=== PATIENT | male | born 1945 | race Caucasian/White ===

== ENCOUNTER 2022-01-03 13:22 | Outpatient (CLI) | payer MEDICARE, SELFPAY ==
[2022-01-03 22:16] LABS: Albumin* 4.4 g/dL (3.3-5.0); Chloride* 95 mmol/L (96-114)
[2022-01-03 22:17] LABS: Potassium* 5.2 mmol/L (3.6-5.1); Sodium* 132 mmol/L (135-149)
[2022-01-03 22:19] LABS: Aspartate Amino Transferase* 27 U/L (12-35); Bilirubin Total* 0.7 mg/dL (0.1-1.5); Blood Urea Nitrogen* 18 mg/dL (7-30); Carbon Dioxide* 29 mmol/L (20-32); Cholesterol* 168 mg/dL (90-199); Estimated Glomerular Filt Rate 78 ml/min; Total Protein* 7.1 g/dL (6.0-8.3)
[2022-01-03 22:20] LABS: Alkaline Phosphatase* 80 U/L (40-150); Calcium* 10.1 mg/dL (8.4-10.6); Glucose* 193 mg/dL (60-115); HDL Cholesterol* 42 mg/dL (>=40); LDL Cholesterol Calculated 83 mg/dL (<100); Triglycerides* 216 mg/dL (40-149)
[2022-01-03 22:22] LABS: Creatinine Urine 103.1 mg/dL
[2022-01-03 22:24] LABS: Microalbumin Creatinine Ratio 0 mg/g (0-30); Microalbumin Urine 1 mg/dL
[2022-01-03 22:44] LABS: PSA Screen* 0.68 ng/mL (0.10-4.00)
[2022-01-03 22:52] LABS: Alanine Aminotransferase* 34 U/L (4-50)
== END 2022-01-03 13:23 | disposition home or self-care (01) ==
PROVIDERS: PCP Family Medicine; Visit Provider Family Medicine
DX: Z00.00 Encounter for general adult medical examination without abnormal findings (principal); D64.9 Anemia, unspecified; E11.9 Type 2 diabetes mellitus without complications; E78.5 Hyperlipidemia, unspecified; I10 Essential (primary) hypertension; Z12.5 Encounter for screening for malignant neoplasm of prostate
CPT/HCPCS: 80053; 80061; 82043; 82570; 84153

== ENCOUNTER 2022-04-04 13:04 | Outpatient (CLI) | payer MEDICARE, SELFPAY ==
[2022-04-04 23:01] LABS: Vitamin D 25 Hydroxy* 27 ng/mL (30-80)
== END 2022-04-04 13:05 | disposition home or self-care (01) ==
PROVIDERS: PCP Family Medicine; Visit Provider Family Medicine
DX: E11.9 Type 2 diabetes mellitus without complications (principal); I10 Essential (primary) hypertension; R53.83 Other fatigue; D64.9 Anemia, unspecified
CPT/HCPCS: 82306; 84443

== ENCOUNTER 2022-07-04 13:23 | Outpatient (CLI) | payer MEDICARE, SELFPAY | END 2022-07-04 13:24 | disposition home or self-care (01) | LOC: LKVREF 13:24 | PROVIDERS: PCP Family Medicine; Visit Provider Family Medicine | DX: E55.9 Vitamin D deficiency, unspecified (principal); E11.9 Type 2 diabetes mellitus without complications; I10 Essential (primary) hypertension; E78.5 Hyperlipidemia, unspecified; R53.83 Other fatigue | CPT/HCPCS: 82306 ==

== ENCOUNTER 2022-07-15 12:32 | Outpatient (CLI) | payer MEDICARE, SELFPAY | END 2022-07-15 12:33 | disposition home or self-care (01) | LOC: RAD 12:34 | PROVIDERS: PCP Family Medicine; Visit Provider Family Medicine | DX: R60.9 Edema, unspecified (principal); I31.39 Other pericardial effusion (noninflammatory); R53.83 Other fatigue | CPT/HCPCS: 93306 ==

== ENCOUNTER 2022-11-23 08:01 | Day surgery (SDC) | payer MEDICARE, SELFPAY ==
[2022-11-23] MEDS: KETOROLAC OPHTH 0.5% 1 DROP EYE-RIGHT ×3 (08:00→08:10)
[2022-11-23] MEDS: TETRACAINE 0.5% OPHTH 1 DROP EYE-RIGHT ×2 (08:00→08:05)
[2022-11-23 08:14] VITALS: BP 151/92; PULSE 63; RESP 16; TEMP 36.5; O2SAT 94; BMI 33.3
[2022-11-23] MEDS: SODIUM CHLORIDE 0.9 % (FLUSH) 10 ML SYRINGE IVF (08:44)
--- NOTE | 2022-11-23 08:45 | SUR.PREOP ---
The eye drops brought by the patient (Ketorolac, Oflaxacin and Prednisolone) are examined and I have determined they are labeled by the patient's pharmacy for this patient as prescribed by the surgeon. The bottles are intact, recently obtained and appear to be correct.
--- NOTE | 2022-11-23 09:24 | P.ANES_ITS ---
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
[2022-11-23] MEDS: TETRACAINE 0.5% OPHTH 2 DROP EYE-RIGHT (09:26)
[2022-11-23] MEDS: BALANCED SALT IRRIG SOLN 15 ML EYE-RIGHT (09:27)
[2022-11-23] MEDS: TRYPAN BLUE 0.5 ML SYRINGE EYE-RIGHT (09:28)
--- NOTE | 2022-11-23 09:29 | W.ANESCHARGE ---
Anesthesia Charges Start Date/Time Anesthesia Start Date: 11/23/22 Anesthesia Start Time: 09:18 Stop Date/Time Anesthesia Stop Date: 11/23/22 Anesthesia Stop Time: 10:09 Summary Extremes of Age - Over 70 or under 1: MDA
[2022-11-23 10:13] VITALS: BP 126/83; PULSE 61; RESP 16; TEMP 36.3; O2SAT 94
[2022-11-23] MEDS: ACETAMINOPHEN 500 MG TABLET 1000 MG PO (10:30)
--- NOTE | 2022-11-23 10:50 | SUR.PHASEII ---
As pt was sitting up in chair, he did vomit one time. 50cc. ambulated to bathroom without difficulty. Pt states before discharge, he was feeling better, not nauseated and pain in eye getting better. Tylenol was given before discharge.
--- NOTE | 2022-11-23 10:53 | W.PM.OPTPROC ---
Procedure Note Date of procedure: 11/23/22 Will [facility] bill your pro fee for this procedure?: Yes Procedure Description: SURGEON: Montse Arthur MD PREOPERATIVE DIAGNOSIS: 1. Mature cataract, right eye. 2. Miosis, right eye. POSTOPERATIVE DIAGNOSIS: 1. Mature cataract, right eye. 2. Miosis, right eye. NAME OF OPERATION: Phacoemulsification of cataract with posterior chamber intraocular lens implantation in the right eye with pupilloplasty and trypan blue. ANESTHESIA: Topical. ESTIMATED BLOOD LOSS: Less than 2 cc. COMPLICATIONS: None. PATHOLOGY SPECIMEN: None. INDICATIONS: See consult note for details. The risks, benefits and alternatives of the procedure were explained to the patient, who elected to proceed and signed informed consent to do so. PROCEDURE: The patient was brought to the pre-holding area where the right eye was identified as the operative eye. I placed my initials above this eye. The patient received eye drops consisting of 0.5% tetracaine, 1% tropicamide, 10% phenylephrine, and 0.5% ketorolac. The patient was then brought to the operating room where the right eye was again identified as the operative eye. The eye was prepped with Betadine and draped in the usual sterile ophthalmic fashion. A #15 super-sharp blade was used to create a paracentesis site. 1% non-preserved intracameral lidocaine was injected into the anterior chamber. An air bubble was injected into the anterior chamber. Trypan blue was injected posterior to the air bubble in order to stain the anterior capsule. Balanced salt solution was used to irrigate the anterior chamber. Endocoat was injected into the anterior chamber. A 2.4 mm keratome was used to create a three-plane self-sealing incision 1 mm anterior to the temporal limbus. A #15 super-sharp blade was used to create four additional paracentesis sites. Four Grieshaber iris hooks were placed in order to stretch the iris. A cystotome was used to create an anterior capsular leaflet. The Utrata forceps were used to extend this to form a continuous curvilinear capsulorrhexis. Hydrodissection was performed. The cataract was removed with phacoemulsification using the [id number] technique. The irrigation and aspiration tip was used to remove the remaining cortex. Healon was injected into the capsular bag. An SAMARA ZCB00 intraocular lens of 22.5 diopters was injected into the capsular bag. The four Grieshaber iris hooks were removed. The irrigation and aspiration tip was used to remove the remaining viscoelastic. Miostat was injected into the anterior chamber. Balanced salt solution on a cannula was used to hydrate the wound, and the wound was found to be watertight. The pupil was noted to be round. DISPOSITION: The patient was taken to the recovery room and discharged to home in stable condition. The patient was instructed to call me or go to the emergency department with any sudden change, including dramatic loss of vision, severe pain in the eye or eyebrow region, nausea, or vomiting. The patient will follow up in the clinic tomorrow morning.
== END 2022-11-23 10:52 | disposition home or self-care (01) ==
PROVIDERS: PCP Family Medicine; Visit Provider Ophthalmology
PROC: (CPT 66982; principal; 2022-11-23 08:15)
DX: H25.89 Other age-related cataract (principal); H57.03 Miosis
CPT/HCPCS: 66982; 00142; 82962; 99100; A9270; J2250; J3010; V2632

== ENCOUNTER 2023-01-05 13:32 | Outpatient (CLI) | payer MEDICARE, SELFPAY | END 2023-01-05 13:33 | disposition home or self-care (01) | LOC: LKVREF 13:33 | PROVIDERS: PCP Family Medicine; Visit Provider Family Medicine | DX: E11.9 Type 2 diabetes mellitus without complications (principal); E55.9 Vitamin D deficiency, unspecified | CPT/HCPCS: 80053; 80061; 82043; 82570 ==

== ENCOUNTER 2023-06-07 08:02 | Day surgery (SDC) | payer MEDICARE, SELFPAY ==
[2023-06-07 08:21] VITALS: BP 157/73; PULSE 87; RESP 16; TEMP 36.6; O2SAT 97; BMI 31.2
[2023-06-07] MEDS: TETRACAINE 0.5% OPHTH 1 DROP EYE-LEFT ×2 (08:30→08:35)
[2023-06-07] MEDS: KETOROLAC OPHTH 0.5% 1 DROP EYE-LEFT ×3 (08:30→08:40)
[2023-06-07] MEDS: SODIUM CHLORIDE 0.9 % (FLUSH) 10 ML SYRINGE IVF (08:41)
--- NOTE | 2023-06-07 09:13 | W.ANESCHARGE ---
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
[2023-06-07] MEDS: TETRACAINE 0.5% OPHTH 2 DROP EYE-LEFT (09:22)
[2023-06-07] MEDS: TRYPAN BLUE 0.5 ML SYRINGE EYE-LEFT (09:28)
[2023-06-07] MEDS: BALANCED SALT IRRIG SOLN 15 ML EYE-LEFT (09:28)
--- NOTE | 2023-06-07 09:57 | W.ANESCHARGE ---
Anesthesia Charges Start Date/Time Anesthesia Start Date: 06/07/23 Anesthesia Start Time: 09:20 Stop Date/Time Anesthesia Stop Date: 06/07/23 Anesthesia Stop Time: 10:05 Summary Extremes of Age - Over 70 or under 1: MDA
[2023-06-07 10:01] VITALS: BP 118/82; PULSE 75; RESP 16; TEMP 36.4; O2SAT 96
--- NOTE | 2023-06-07 10:20 | W.PM.OPTPROC ---
Procedure Note Date of procedure: 06/07/23 Will [facility] bill your pro fee for this procedure?: Yes Procedure Description: SURGEON: Montse Arthur MD PREOPERATIVE DIAGNOSIS: 1. Mature cataract, left eye. 2. Miosis, left eye. POSTOPERATIVE DIAGNOSIS: 1. Mature cataract, left eye. 2. Miosis, left eye. NAME OF OPERATION: Phacoemulsification of cataract with posterior chamber intraocular lens implantation in the left eye with pupilloplasty and trypan blue. ANESTHESIA: Topical. ESTIMATED BLOOD LOSS: Less than 2 cc. COMPLICATIONS: None. PATHOLOGY SPECIMEN: None. INDICATIONS: See consult note for details. The risks, benefits and alternatives of the procedure were explained to the patient, who elected to proceed and signed informed consent to do so. PROCEDURE: The patient was brought to the pre-holding area where the left eye was identified as the operative eye. I placed my initials above this eye. The patient received eye drops consisting of 0.5% tetracaine, 1% tropicamide, 10% phenylephrine, and 0.5% ketorolac. The patient was then brought to the operating room where the left eye was again identified as the operative eye. The eye was prepped with Betadine and draped in the usual sterile ophthalmic fashion. A #15 super-sharp blade was used to create a paracentesis site. 1% non-preserved intracameral lidocaine was injected into the anterior chamber. An air bubble was injected into the anterior chamber. Trypan blue was injected posterior to the air bubble in order to stain the anterior capsule. Endocoat was injected into the anterior chamber. A 2.4 mm keratome was used to create a three-plane self-sealing incision 1 mm anterior to the temporal limbus. A #15 super-sharp blade was used to create four additional paracentesis sites. Four Grieshaber iris hooks were placed in order to stretch the iris. A cystotome was used to create an anterior capsular leaflet. The Utrata forceps were used to extend this to form a continuous curvilinear capsulorrhexis. Hydrodissection was performed. The cataract was removed with phacoemulsification using the [id number] technique. The irrigation and aspiration tip was used to remove the remaining cortex. Healon was injected into the capsular bag. An SAMARA ZCB00 intraocular lens of 23.0 diopters was injected into the capsular bag. The four Grieshaber iris hooks were removed. The irrigation and aspiration tip was used to remove the remaining viscoelastic. Miostat was injected into the anterior chamber. Balanced salt solution on a cannula was used to hydrate the wound, and the wound was found to be watertight. The pupil was noted to be round. DISPOSITION: The patient was taken to the recovery room and discharged to home in stable condition. The patient was instructed to call me or go to the emergency department with any sudden change, including dramatic loss of vision, severe pain in the eye or eyebrow region, nausea, or vomiting. The patient will follow up in the clinic tomorrow morning.
--- NOTE | 2023-06-07 10:21 | P.OPTPRC_ITS ---
Procedure Note Date of procedure: 06/07/23 Will [facility] bill your pro fee for this procedure?: Yes Procedure: discard this note, it is a duplicate
--- NOTE | 2023-06-07 10:21 | W.PM.OPTPROC ---
Procedure Note Date of procedure: 06/07/23 Will [facility] bill your pro fee for this procedure?: Yes Procedure: discard this note, it is a duplicate
--- NOTE | 2023-06-07 10:44 | SUR.PHASEII ---
The eye drops brought by the patient (Ketorolac, Prednisolone, and Ofloxacin) are examined and I have determined they are labeled by the patient's pharmacy for this patient as prescribed by the surgeon. The bottles are intact, recently obtained and appear to be correct.
== END 2023-06-07 10:34 | disposition home or self-care (01) ==
PROVIDERS: PCP Family Medicine; Visit Provider Ophthalmology
PROC: (CPT 66982; principal; 2023-06-07 08:15)
DX: H25.89 Other age-related cataract (principal); H57.03 Miosis; E11.9 Type 2 diabetes mellitus without complications
CPT/HCPCS: 66982; 00142; 82962; 99100; A9270; J2250; J2405; J3010; V2632

== ENCOUNTER 2023-10-03 13:10 | Outpatient (CLI) | payer MEDICARE, SELFPAY ==
--- OUTSIDE RECORDS SUMMARY | 2023-10-03 13:16 | XMS_ITS | Clinical Summary ---
Author Organization [place] Address [address] [place] [address]. [place] [address] Care Team Providers Care Net Repairer Name Role Phone [facility]- Primary Care Provider Jennyfer Patel PA-C Unavailable [phone] Allergies No known active allergies Medications Medication Sig Dispensed Refills Start Date End Date Status amLODIPine (NORVASC) 2.5 MG tablet Take 2.5 mg by mouth daily Active famotidine (PEPCID) 40 MG tablet Take 40 mg by mouth daily Active glimepiride (AMARYL) 2 MG tablet Take 2 mg by mouth every morning (before breakfast) Active atorvastatin (LIPITOR) 20 MG tablet Take 20 mg by mouth At Bedtime Active losartan-hydrochlor othiazide (HYZAAR) 100-25 MG tablet Take 1 tablet by mouth daily Active metFORMIN (GLUCOPHAGE) 500 MG tablet Take 1,000 mg by mouth 2 times daily (with meals) Active cholecalciferol (VITAMIN D3) 125 mcg (5000 units) capsule Take 125 mcg by mouth daily Active triamcinolone (KENALOG) 0.1 % external cream Apply topically 2 times daily as needed for irritation (psoriasis) Active polyethylene glycol (MIRALAX) 17 GM/Dose powderIndications:T ibia/fibula fracture, right, closed, initial encounter Take 17 g by mouth daily 510 g 12/02/2022 Active senna-docusate (SENOKOT-S/PERICOLA CE) 8.6-50 MG tabletIndications:T ibia/fibula fracture, right, closed, initial encounter Take 1 tablet by mouth 2 times daily 21 tablet 12/02/2022 Active calcium carbonate (TUMS) 500 MG chewable tabletIndications:T ibia/fibula fracture, right, closed, with routine healing, subsequent encounter Take 1 tablet (500 mg) by mouth 2 times daily as needed for heartburn 12/05/2022 Active acetaminophen (TYLENOL) 500 MG tablet Take 1,000 mg by mouth 3 times daily as needed for mild pain Active Active Problems Problem Noted Date Diagnosed Date Tibia/fibula fracture, right , closed, with routine healing, subsequent encounter 11/30/2022 Encounters Date Type Department Care Team Description 07/14/2023 Telephone [facility] [address] [facility] [address] [place] [phone] Sugey Sullivan, HANNA Implantable Devices (PPM remote monitor question ) 07/07/2023 Ancillary Procedure [facility] [address] [facility] [address] [place] [phone] Carlos Diane MD Cardiac pacemaker in situ; Atrioventricular block, complete (H) from Last 3 Months Immunizations Name Administration Dates Next Due Influenza Vaccine 65+ (Fluzone HD) 01/03/2022,,04/10/2020 TDAP (Adacel,Boostrix) 12/02/2022 Social History Tobacco Use Types Packs/Day Years Used Date Smoking Tobacco: Former Cigarettes Q uit: 2018 Smokeless Tobacco: Never Tobacco Cessation:Counseling Given: Not Answered Alcohol Use Standard Drinks/Week Comments Never 0 (1 standard drink = 0.6 oz pur e alcohol) Adolescent Education Answer Date Record ed Getting School Help Needed Not on file 12/10 Sex and Gender Information Value Date Recorded Sex Assigned at Not on file Gender Identity Not on file Sexual Orientation Not on file Last Filed Vital Signs Vital Sign Reading Time Taken Comments Blood Pressure 121/77 01/19/2023 5:00 PM CDT Pulse 81 01/19/2023 5:15 PM CDT Temperature 36.3 ??C (97.4 ??F) 01/19/2023 1:28 PM CD T Respiratory Rate 18 01/19/2023 5:15 PM CDT Oxygen Saturation 96% 01/19/2023 5:15 PM CDT Inhaled Oxygen Concentration - - Weight 109.9 kg (242 lb 3.2 oz) 01/19/2023 1:28 PM CDT Height 185.4 cm (6' 1) 01/19/2023 1:28 PM CDT Body Mass Index 31.95 01/19/2023 1:28 PM CDT Plan of Treatment Upcoming Encounters Date Type Department Care Team (Late st Contact Info) Description 10/30/2023 Ancillary Procedure [facility] [address] [facility] [address] [place] [phone] Carlos Diane MD [address] [place] [address] Health Maintenance Due Date Last Done Comments ADVANCE CARE PLANNING 1945 ANNUAL REVIEW OF HM ORDERS 1946 DIABETIC FOOT EXAM 1946 EYE EXAM 1946 LIPID 1946 MICROALBUMIN 1946 MENINGITIS IMMUNIZATION (1 - Risk 2-dose series) 02/17/1948 HEPATITIS C SCREENING 02/17/1964 LUNG CANCER SCREENING 02/17/1996 ZOSTER IMMUNIZATION (1 of 2) 02/17/1996 RSV VACCINE ( & 60+) (1 - 1-dose 60+ series) 2006 FALL RISK ASSESSMENT 2011 MEDICARE ANNUAL WELLNESS VISIT 2011 A1C 03/01/2023 11/30/2022 PHQ-2 (once per calendar year) 2023 COVID-19 Vaccine ( season) 2023 03/24/2023, 12/14/2021, 04/27/2021, Additional history exists INFLUENZA VACCINE (#1) 2023 , 01/03/2022, 01/04/2021, Additional history exists BMP 01/20/2024 01/19/2023, 11/19, 12/05/2022, Additional history exists DTAP/TDAP/TD IMMUNIZATION (2 - Td or Tdap) 12/02/2032 12/02/2022 Pneumococcal Vaccine: 65+ Years Completed 10/07/2016, 02/20/2015 HPV IMMUNIZATION Aged Out No longer e ligible based on patient's age to complete this topic IPV IMMUNIZATION Aged Out No longer e ligible based on patient's age to complete this topic RSV MONOCLONAL ANTIBODY Aged Out No l onger eligible based on patient's age to complete this topic Medical Devices Implanted Type Area Floor Nurse Device Identifier Shelf Expiration Date Model / Serial / Lot Lead Ingevity+ Af Is1 7842 59cm - [id number] Implanted:Qty : 1 on 01/19/[address] [facility] Leads [employer] 10/22/2024 7842 / [id number] / [id number] Lead Ingevity+ Af Is1 7841 52cm - [id number] Implanted:Qty : 1 on 01/19/[address] [facility] [employer] 10/18/2024 7841 / [id number] / [id number] Screw Bn 47.5mm 5mm Lck Strl T2 Alpha - [id number] Implanted:Qty : 1 on 12/01/2022 by Amadeo Jean-Bapitste MD at [facility] Metallic Hardware/Anch or Right: Leg BLOSSOM [employer] 09/17/2023 [id number] S / / [id number] Screw Bn 40mm 5mm Lck Strl T2 Alpha - [id number] Implanted:Qty : 1 on 12/01/2022 by Amadeo Jean-Baptiste MD at [facility] Metallic Hardware/Anch or Right: Leg [employer] 04/19/2032 [id number] S / / [id number] Screw Bn 47.5mm 5mm Lck Strl T2 Alpha - [id number] Implanted:Qty : 1 on 12/01/2022 by Amadeo Jean-Baptiste MD at [facility] Metallic Hardware/Anch or Right: Leg BLOSSOM [employer] 11/17/2029 [id number] S / / [id number] Card Accolade Mri - [id number] Implanted:Qty : 1 on 01/19/[address] [facility] Pacemaker [employer] 12/11/2024 L331 / [id number] / [id number] Tibial Nail 11 X 375 Implanted:Qty : 1 on 12/01/2022 by Amadeo Jean-Baptiste MD at [facility] Right: Leg [employer] 05/18/2031 [id number] S / / [id number] Wire Fx 3mm 285mm [facility] - [id number] Implanted:Qty : 1 on 12/01/2022 by Amadeo Jean-Baptiste MD at [facility] Right: Leg [employer] [id number] S / / [id number] Procedures Procedure Name Priority Date/Time Associated Diagnosis Comments INTERROGATION DEVICE EVAL REMOTE PACER UP TO 90 DAYS Routine 07/07/2023 9:10 AM CDT Cardiac pacemaker in situ Atrioventricular block, complete (H) BASIC METABOLIC PANEL STAT 01/19/2023 2:11 PM CDT HEMOGLOBIN A1C Add-On 11/30/2022 2:22 PM CDT from Last 3 Months or Most Recently Relevant to Health Maintenance Results * INTERROGATION DEVICE EVAL REMOTE PACER UP TO 90 DAYS (07/07/2023 9:10 AM CDT) Date Time Interrogation Session [id number] [employer] Implantable Pulse Generator Floor Nurse [place] [employer] Implantable Pulse Generator Model L331 ACCOLADE MRI EL [employer] Implantable Pulse Generator Serial Number [id number] [employer] Type Interrogation Session Remote Scheduled [facility] Clinic Name [facility] [employer] Implantable Pulse Generator Type Pacemaker [employer] Implantable Pulse Generator Implant Date 20230119 [employer] Implantable Lead Floor Nurse [place] [employer] Implantable Lead Model 7841 Ingevity + MRI [employer] Implantable Lead Serial Number [id number] [employer] Implantable Lead Implant Date 20230119 [employer] Implantable Lead Polarity Type Bipolar Lead [employer] Implantable Lead Location Detail 1 UNKNOWN [employer] Implantable Lead Location Right Atrium [employer] Implantable Lead Connection Status Connected [employer] Implantable Lead Floor Nurse [place] [employer] Implantable Lead Model 7842 Ingevity + MRI [employer] Implantable Lead Serial Number [id number] [employer] Implantable Lead Implant Date 20230119 [employer] Implantable Lead Polarity Type Bipolar Lead [employer] Implantable Lead Location Detail 1 UNKNOWN [employer] Implantable Lead Location Right Ventricle [employer] Implantable Lead Connection Status Connected [employer] Jd Setting Mode (NBG Code) DDD [employer] Jd Setting Lower Rate Limit 60 {beats}/ min [employer] Jd Setting Maximum Tracking Rate 130 {beats}/ min [employer] Jd Setting Maximum Sensor Rate 130 {beats}/ min [employer] Jd Setting MER Delay Low 200 ms [employer] Jd Setting PAV Delay Low 200 ms [employer] Jd Setting PAV Delay High 150 ms [employer] Jd Setting MER Delay High 150 ms [employer] Jd Setting AT Mode Switch Rate 170 {beats}/ min [employer] Jd Setting AT Mode Switch Mode VDIR [employer] Lead Channel Setting Sensing Polarity Bipolar [employer] Lead Channel Setting Sensing Sensitivity 0.15 mV [employer] Lead Channel Setting Sensing Adaptation Mode Adaptive [employer] Lead Channel Setting Sensing Polarity Bipolar [employer] Lead Channel Setting Sensing Sensitivity 1.5 mV [employer] Lead Channel Setting Sensing Adaptation Mode Adaptive [employer] Lead Channel Setting Pacing Polarity Bipolar [employer] Lead Channel Setting Pacing Pulse Width 0.4 ms [employer] Lead Channel Setting Pacing Amplitude 2.0 V [employer] Lead Channel Setting Pacing Capture Mode Adaptive [employer] Lead Channel Setting Pacing Polarity Bipolar [employer] Lead Channel Setting Pacing Pulse Width 0.4 ms [employer] Lead Channel Setting Pacing Amplitude 1.2 V [employer] Lead Channel Setting Pacing Capture Mode Adaptive [employer] Zone Setting Type Category VT [employer] Zone Setting Vendor Type Category VT [employer] Zone Setting Status Monitor [employer] Zone Setting Detection Interval 375 ms [employer] Lead Channel Impedance Value 562 ohm [employer] Lead Channel Pacing Threshold Amplitude 0.7 V [employer] Lead Channel Pacing Threshold Pulse Width 0.4 ms [employer] Lead Channel Impedance Value 738 ohm [employer] Lead Channel Pacing Threshold Amplitude 0.9 V [employer] Lead Channel Pacing Threshold Pulse Width 0.4 ms [employer] Battery Date Time of Measurements [employer] Battery Status Beginning of Service [employer] Battery Remaining Longevity 174 mo [employer] Battery Remaining Percentage 100 % [employer] Jd Statistic Date Time Start [employer] Jd Statistic Date Time End [id number] [employer] Jd Statistic RA Percent Paced 13 % [employer] Jd Statistic RV Percent Paced 82 % [employer] Atrial Tachy Statistic Date Time Start [id number] [employer] Atrial Tachy Statistic Date Time End [id number] [employer] Atrial Tachy Statistic AT/AF [place] Percent 0 % [employer] Episode Statistic Recent Count 0 [employer] Episode Statistic Type Category Other [employer]IC Episode Statistic Recent Count 0 [employer]IC Episode Statistic Type Category VT [employer]TR[employer]IC Episode Statistic Vendor Type Category NSVT [employer]TR[employer] Episode Statistic Recent Count 0 [employer]IC Episode Statistic Type Category VT [employer]TR[employer]IC Episode Statistic Vendor Type Category VT [employer]TR[employer]IC Episode Statistic Recent Date Time Start [id number] [employer] Episode Statistic Recent Date Time End [id number] [employer] Episode Statistic Recent Date Time Start [employer]TR[employer]IC Episode Statistic Recent Date Time End [id number] [employer] Episode Statistic Recent Date Time Start [employer] Episode Statistic Recent Date Time End [employer] Episode Identifier APM-5 [employer] Episode Type Category Periodic EGM [employer] Episode Date Time [id number] [employer] Episode Identifier [id number] [employer] Episode Type Category Other [employer] Episode Date Time [id number] [employer] Episode Identifier [id number] [employer] Episode Type Category Other [employer]IC Episode Date Time [id number] [employer] Episode Identifier PMT-2 [employer] Episode Type Category Other [employer]IC Episode Date Time [id number] [employer] Episode Identifier PMT-1 [employer] Episode Type Category Other [employer] Episode Date Time [id number] [employer] Anatomical Region Laterality Modality Other 07/07/2023 4:01 AM CDT Narrative 07/11/2023 11:04 AM CDT [facility] Accolade (D) Remote PPM Device Check AP: 13% TUBE TELLER: 82% Mode: DDD 60/130 Presenting Rhythm: /TUBE TELLER Historical underlying rhythm: SR 70's bpm with freq PACs and occ PVCs Heart Rate: Adequate rates per histogram Sensing: stable Pacing Threshold: stable Impedance: stable Battery Status: 14.5 years Atrial Arrhythmia: none Ventricular Arrhythmia: none Care Plan: F/u PPM Latitude q 3 months. LM with results. SOPHIA MontejoT I have reviewed and interpreted the device interrogation, settings, programming and nurse's summary. The device is functioning within normal device parameters. I agree with the current findings, assessment and plan. Carlos Santana MD [facility] CARDIAC SERVICES ORDERABLES * (ABNORMAL) Basic metabolic panel (01/19/2023 2:11 PM CDT) Sodium 138 135 - 145 mmol/L 01/19/2023 2:39 PM CDT LABORATORY Comment:Reference intervals for this test were updated on 12/13/2022 to more accurately reflect our healthy population. There may be differences in the flagging of prior results with similar values performed with this method. Interpretation of those prior results can be made in the context of the updated reference intervals. Potassium 5.2 3.4 - 5.3 mmol/L 01/19/2023 2:39 PM CDT LABORATORY Chloride 101 98 - 107 mmol/L 01/19/2023 2:39 PM CDT LABORATORY Carbon Dioxide (CO2) 26 22 - 29 mmol/L 01/19/2023 2:39 PM CDT LABORATORY Anion Gap 11 7 - 15 mmol/L 01/19/2023 2:39 PM CDT LABORATORY Urea Nitrogen 25.6(H) 8.0 - 23.0 mg/dL 01/19/2023 2:39 PM CDT LABORATORY Creatinine 1.67(H) 0.67 - 1.17 mg/dL 01/19/2023 2:39 PM CDT LABORATORY GFR Estimate 42(L) >60 mL/min/1. 73m2 01/19/2023 2:39 PM CDT LABORATORY Calcium 9.8 8.8 - 10.2 mg/dL 01/19/2023 2:39 PM CDT LABORATORY Glucose 147(H) 70 - 99 mg/dL 01/19/2023 2:39 PM CDT LABORATORY Blood STRUCTURE OF LEFT HAND / Unknown Venipuncture / Unknown 01/19/2023 2:11 PM CDT 01/19/2023 2:16 PM CDT Carlos Santana MD LAB - BLOOD ORDERABL ES LABORATORY [facility] [address] 1[address] floor, [address] [place] [address], [facility] [phone] * (ABNORMAL) Hemoglobin A1c (11/30/2022 2:22 PM CDT) Hemoglobin A1C 9.4(H) <5.7 % 11/30/2022 7:11 PM CDT LABORATORY Comment: Normal <5.7% Prediabetes 5.7-6.4% ?? Diabetes 6.5% or higher Note: Adopted from ADA consensus guidelines. Blood STRUCTURE OF RIGHT HAND / Unknown Venipuncture / Unknown 11/30/2022 2:22 PM CDT 11/30/2022 2:26 PM CDT Dimitri Seth IRB COMPLIANCE COORDINATOR MACHINE DESIGN TEACHER LAB - BLOOD O RDERABLES [facility] Lab [address] Lab (1st floor, no room number) [place] [address], [place] [phone] from Last 3 Months or Most Recently Relevant to Health Maintenance Advance Directives For more information, please contact: [phone] * Full Code (Latest Code Status on File) Date Activated Date Inactivated Comments 12/01/2022 11:58 AM 12/05/2022 4:50 PM All basic a nd advanced life-sustaining interventions are performed as appropriate Question Answer Comments Code status determined by: Unable to dis cuss and no AD/POLST on file; continue PREVIOUSLY ORDERED code status * Full Code Date Activated Date Inactivated Comments 11/30/2022 6:27 PM 12/01/2022 11:58 AM All basic a nd advanced life-sustaining interventions are performed as appropriate Question Answer Comments Code status determined by: Discussion with tho nt/ legal decision maker Care Teams Net Repairer Relationship Specialty Start Date End Date [facility]- [address] [place] [address] PCP - General 12/02/22 Jennyfer Patel PA-C [address] [place] [address] Assigned Heart and Vascular Provider 12/24/22
--- OUTSIDE RECORDS SUMMARY | 2023-10-03 13:16 | XMS_ITS | Encounter Summary ---
Author Organization [place] Address [address] [facility] [place] [address] Care Team Providers Care Solution Spec Name Role Phone [facility]- Primary Care Provider Jennyfer Patel PA-C Unavailable [phone] Reason for Visit * CV Testing (Routine) - Pending Review Specialty Diagnoses / Procedures Referred By Contac t Referred To Contact Diagnoses Cardiac pacemaker in situ Atrioventricular block, complete (H) Procedures Cardiac Device Check - Remote Carlos Diane MD [address] [place] [address] Referral ID Status Reason Start Date Expiration Date V isits Requested Visits Authorized [id number] Pending Review 01/20/2023 01/20/2024 100 100 Encounter Details Date Type Department Care Team (Latest Contact Info) Description 07/07/2023 Ancillary Procedure [facility] [address] [facility] [address] [place] [phone] Carlos Diane MD [address] [facility] [address] [place], [place] [address] Cardiac pacemaker in situ; Atrioventricular block, complete (H) Social History Tobacco Use Types Packs/Day Years Used Date Smoking Tobacco: Former Cigarettes Q uit: 2018 Smokeless Tobacco: Never Alcohol Use Standard Drinks/Week Comments Never 0 (1 standard drink = 0.6 oz pur e alcohol) Adolescent Education Answer Date Record ed Getting School Help Needed Not on file 12/10 Sex and Gender Information Value Date Recorded Sex Assigned at Not on file Gender Identity Not on file Sexual Orientation Not on file documented as of this encounter Plan of Treatment Upcoming Encounters Date Type Department Care Team (Late st Contact Info) Description 10/30/2023 Ancillary Procedure [facility] [address] [facility] [address] [place] [phone] Carlos Diane MD [address] [facility] [address] [place] [phone] documented as of this encounter Procedures Procedure Name Priority Date/Time Associated Diagnosis Comments INTERROGATION DEVICE EVAL REMOTE PACER UP TO 90 DAYS Routine 07/07/2023 9:10 AM CDT Cardiac pacemaker in situ Atrioventricular block, complete (H) documented in this encounter Results * INTERROGATION DEVICE EVAL REMOTE PACER UP TO 90 DAYS (07/07/2023 9:10 AM CDT) Date Time Interrogation Session [id number] [employer] Implantable Pulse Generator Atomic Fuel Assembler [place] [employer] Implantable Pulse Generator Model L331 ACCOLADE MRI EL [employer] Implantable Pulse Generator Serial Number [id number] [employer] Type Interrogation Session Remote Scheduled [facility] Clinic Name [facility] [employer] Implantable Pulse Generator Type Pacemaker [employer] Implantable Pulse Generator Implant Date 20230119 [employer] Implantable Lead Atomic Fuel Assembler [place] [employer] Implantable Lead Model 7841 Ingevity + MRI [employer] Implantable Lead Serial Number [id number] [employer] Implantable Lead Implant Date 20230119 [employer] Implantable Lead Polarity Type Bipolar Lead [employer] Implantable Lead Location Detail 1 UNKNOWN [employer] Implantable Lead Location Right Atrium [employer] Implantable Lead Connection Status Connected [employer] Implantable Lead Atomic Fuel Assembler [place] [employer] Implantable Lead Model 7842 Ingevity + MRI [employer] Implantable Lead Serial Number [id number] [employer] Implantable Lead Implant Date 20230119 [employer]IC [...] % [employer] Jd Statistic Date Time Start [id number] [employer] Jd Statistic Date Time End [id number] [employer] Jd Statistic RA Percent Paced 13 % [employer] Jd Statistic RV Percent Paced 82 % [employer] Atrial Tachy Statistic Date Time Start 16882080299212 [employer] Atrial Tachy Statistic Date Time End [id number] [employer] Atrial Tachy Statistic AT/AF [place] Percent 0 % [employer] Episode Statistic Recent Count 0 [employer] Episode Statistic Type Category Other [employer] Episode Statistic Recent Count 0 [employer] Episode Statistic Type Category VT [employer] Episode Statistic Vendor Type Category NSVT [employer]TR[employer] Episode Statistic Recent Count 0 [employer] Episode Statistic Type Category VT [employer] Episode Statistic Vendor Type Category VT [employer] Episode Statistic Recent Date Time Start [id number] [employer] Episode Statistic Recent Date Time End [id number] [employer] Episode Statistic Recent Date Time Start [id number] [employer] Episode Statistic Recent Date Time End [id number] [employer]TR[employer] Episode Statistic Recent Date Time Start [id number] [employer] Episode Statistic Recent Date Time End [id number] [employer] Episode Identifier APM-5 [employer] Episode Type Category Periodic EGM [employer] Episode Date Time [id number] [employer] Episode Identifier [id number] [employer] Episode Type Category Other [employer] Episode Date Time [id number] [employer] Episode Identifier [id number] [employer] Episode Type Category Other [employer] Episode Date Time [id number] [employer] Episode Identifier PMT-2 [employer] Episode Type Category Other [employer] Episode Date Time [id number] [employer] Episode Identifier PMT-1 [employer] Episode Type Category Other [employer] Episode Date Time [id number] [employer] Anatomical Region Laterality Modality Other 07/07/2023 4:01 AM CDT Narrative 07/11/2023 11:04 AM CDT [employer] Accolade (D) Remote PPM Device Check AP: 13% BLOWER OPERATOR: 82% Mode: DDD 60/130 Presenting Rhythm: /BLOWER OPERATOR Historical underlying rhythm: SR 70's bpm with [...] Carlos Santana MD [facility] C[facility] SERVICES ORDERABLES documented in this encounter Visit Diagnoses Diagnosis Cardiac pacemaker in situ Atrioventricular block, complete (H) Atrioventricular block, complete documented in this encounter Care Teams Solution Spec Relationship Specialty Start Date End Date [facility]- [address] [place] [address] PCP - General 12/02/22 Jennyfer Patel PA-C [address] [place] [address] Assigned Heart and Vascular Provider 12/24/22 documented as of this encounter
--- OUTSIDE RECORDS SUMMARY | 2023-10-03 13:16 | XMS_ITS | Encounter Summary ---
Author Organization [place] Address [address] [address] Care Team Providers Care Sde Name Role Phone [facility]- Primary Care Provider Jennyfer Patel PA-C Unavailable [phone] Reason for Referral * Consultation - Pending Review Specialty Diagnoses / Procedures Referred By Contac t Referred To Contact Cardiovascular Disease Diagnoses Cardiac pacemaker in situ Atrioventricular block, complete (H) Carlos Diane MD [address] [facility] [address] [place] [address] Referral ID Status Reason Start Date Expiration Date V isits Requested Visits Authorized [id number] Pending Review 07/14/2023 07/13/2024 1 1 Question Answer Follow-up with: KUNAL Reason for follow-up: EP EP Cardiology: DEVICE Scheduling Instructions: [facility] will call you to coordinate your care as prescribed by your provider. If you have concerns about scheduling, please call [phone]. Comments [facility] will call you to coordinate your care as prescribed by your provider. If you have concerns about scheduling, please call [phone]. Reason for Visit * Reason Onset Date Comments Implantable Devices 07/14/2023 PPM remote m onitor question Encounter Details Date Type Department Care Team (Late st Contact Info) Description 07/14/2023 Telephone [facility] [place] [address] [facility] [address] [place] [phone] Sugey Sullivan RN Implantable Devices (PPM remote monitor question ) Social History Tobacco Use Types Packs/Day Years [...] on file documented as of this encounter Miscellaneous Notes * Telephone Encounter - Sugey Sullivan RN - 07/14/2023 2:39 PM CDT Received VM from pt, he wants to know if any odd things have shown up on his PPM. Chart reviewed. Pt has a dual chamber Watchup PPM. His last remote check was 07/07/2023. We have never received a remote alert for pt's device. Called pt back. He said last night around 4am he got out of bed to use the bathroom. His remote monitor lit up all the colors and was flashing lights, it lasted for about 5-10 minutes. I told pt thatthis doesn't mean anything, his monitor was likely just doing an automatic software update. Pt states understanding. Pt said a while back the clinic called him to set up an OV, but they didn't have any openings, so he didn't get an appointment. I reviewed the chart. Pt had PPM implanted in and has not seen cardiology since then. No orders in place for OV. I entered a new order for EP KUNAL (90 days post PPM implant) with a note that this can be scheduled anytime. Transferred pt to central scheduling to set this up. documented in this encounter Plan of Treatment Upcoming Encounters Date Type Department Care Team (Late st Contact Info) Description 10/30/2023 Ancillary Procedure [facility] [address] [place] [phone] Carlos Diane MD [address] [facility] [address] [place] [address] Scheduled Referrals Name Type Priority Associated Diagnoses Orde r Schedule Follow-Up with Cardiology Referral Routine: Next available opening Cardiac pacemaker in situ Atrioventricular block, complete (H) Expected: 07/28/2023 (Approximate), Expires: 07/13/2024 documented as of this encounter Visit Diagnoses Diagnosis Cardiac pacemaker in situ- Primary Atrioventricular block, complete (H) Atrioventricular block, complete documented in this encounter Care Teams Sde Relationship Specialty Start Date End Date [facility]- [address] [place] [address] PCP - General 12/02/22 Jennyfer Patel PA-C [address] [place] [address] Assigned Heart and Vascular Provider 12/24/22 documented as of this encounter
--- OUTSIDE RECORDS SUMMARY | 2023-10-03 13:16 | XMS_ITS | Clinical Summary ---
Author Organization [facility] Address [place], [place] [address] Care Team Providers Care Scrum Project Manager Name Role Phone Unknown, Doctor Primary Care Provider Unavailabl e Encounters Date Type Department Care Team Description 07/27/2023 3:00 PM CDT Office Visit [facility] [place]Note 2[facility] at [facility] [address] [place] [address] Janes Goodwin MD from Last 3 Months Social History Tobacco Use Types Packs/Day Years Used Date Smoking Tobacco: Never Assessed Social Connections Answer Date Recorded Frequency of Communication with Friends and Fami ly Not on file 07/27/2023 Sex and Gender Information Value Date Recorded Sex Assigned at Not on file Gender Identity Not on file Sexual Orientation Not on file Plan of Treatment Health Maintenance Due Date Last Done Comments Tdap 1957 Depression screening for age 12+ 1958 BMI (ht and wt on same day) for age 18+ 02/17/1964 Hepatitis C screening for ag e 18-79 02/17/1964 Tetanus booster 1966 Zoster (shingles) series for age 50+ (1 of 2) 02/17/1996 Medicare Wellness for age 65+ 2011 Pneumococcal series for age 65+ (1 of 1 - PCV) 2011 COVID-19 vaccine series ( season) 2023 03/24/2023, 12/14/2021, 04/27/2021, Additional history exists Influenza for age 65+ 11/19/2023 Care Teams Scrum Project Manager Relationship Specialty Start Date End Date Unknown, Doctor . PCP - General 04/21/06
--- OUTSIDE RECORDS SUMMARY | 2023-10-03 13:16 | XMS_ITS | Referral Summary ---
Author Organization [place] Address [address] [place] [address]. [place] [address] Care Team Providers Care Input Output Clerk Name Role Phone [facility]- Primary Care Provider Jennyfer Patel PA-C Unavailable [phone] Encounters Date Type Department Care Team Description 07/14/2023 Telephone [facility] [address] [facility] [address] [place] [phone] Sugey Sullivan, HANNA Implantable Devices (PPM remote monitor question ) 07/07/2023 Ancillary Procedure [facility] [address] [facility] [address] [place] [phone] Carlos Diane MD Cardiac pacemaker in situ; Atrioventricular block, complete (H) from Last 3 Months Allergies No known active allergies Medications Medication [...] closed, with routine healing, subsequent encounter 11/30/2022 Immunizations Name Administration Dates Next Due Influenza [...] st Contact Info) Description 10/30/2023 Ancillary Procedure [facility] [address] [facility] [address] [place] [phone] Carlos Diane MD [address] [facility] [address] [place] [address] Medical Devices Implanted Type Area Test Bore Helper Device Identifier Shelf Expiration Date Model / Serial / Lot Lead Ingevity+ Af Is1 7842 59cm - [id number] Implanted:Qty : 1 on 01/19/2023 at [facility] Leads [employer] 10/22/2024 7842 / [id number] / [id number] Lead Ingevity+ Af Is1 7841 52cm - [id number] Implanted:Qty : 1 on 01/19/2023 at [facility] [employer] 10/18/2024 7841 / [id number] / [id number] Screw Bn 47.5mm 5mm Lck Strl T2 Alpha - [id number] Implanted:Qty : 1 on 12/01/2022 by Amadeo Jean-Baptiste MD at [facility] Metallic Hardware/Anch or Right: Leg [employer] 09/17/2023 1030-8605 S / / [id number] Screw Bn 40mm 5mm Lck Strl T2 Alpha - [id number] Implanted:Qty : 1 on 12/01/2022 by Amadeo Jean-Baptiste MD at [facility] Metallic Hardware/Anch or Right: Leg [employer] 04/19/2032 7354-9383 S / / [id number] Screw Bn 47.5mm 5mm Lck Strl T2 Alpha - [id number] Implanted:Qty : 1 on 12/01/2022 by Amadeo Jean-Baptiste MD at [facility] Metallic Hardware/Anch or Right: Leg [employer] 11/17/2029 [id number] S / / [id number] Pcmkr Card Accolade Mri El Dr - [id number] Implanted:Qty : 1 on 01/19/2023 at [facility] Pacemaker [employer] 12/11/2024 L331 / [id number] / [id number] Tibial Nail 11 X 375 Implanted:Qty : 1 on 12/01/2022 by Amadeo Jean-Baptiste MD at [facility] Right: Leg [employer] 05/18/2031 1147-6324 S / / [id number] Wire Fx 3mm 285[facility] [id number] Implanted:Qty : 1 on 12/01/2022 by Amadeo Jean-Baptiste MD at [facility] Right: Leg [employer] 0370-3053 S / / [id number] Procedures Procedure Name Priority Date/Time Associated Diagnosis [...] TO 90 DAYS (07/07/2023 9:10 AM CDT) Pathologist [facility] Date Time Interrogation Session [id number] [employer] Implantable Pulse Generator Test Bore Helper [employer] Implantable Pulse Generator Model L331 ACCOLADE MRI EL [employer] Implantable Pulse Generator Serial Number [id number] [employer] Type Interrogation Session Remote Scheduled [employer] Clinic Name [facility] [employer] Implantable Pulse Generator Type Pacemaker [employer] Implantable Pulse Generator Implant Date 20230119 [employer] Implantable Lead Test Bore Helper [employer] Implantable Lead Model 7841 Ingevity + MRI [employer] Implantable Lead Serial Number [id number] [employer] Implantable Lead Implant Date 20230119 [employer] Implantable Lead Polarity Type Bipolar Lead [employer] Implantable Lead Location Detail 1 UNKNOWN [employer] Implantable Lead Location Right Atrium [employer] Implantable Lead Connection Status Connected [employer] Implantable Lead Test Bore Helper [employer] Implantable Lead Model 7842 Ingevity + MRI [employer] Implantable Lead Serial Number [id number] [employer] Implantable Lead Implant Date 20230119 [employer] [...] Start [employer] Jd Statistic Date Time End [employer] Jd Statistic RA Percent Paced 13 % [employer] Jd Statistic RV Percent Paced 82 % [employer] Atrial Tachy Statistic Date Time Start [employer] Atrial Tachy Statistic Date Time End [employer] Atrial Tachy Statistic AT/AF [place] Percent 0 % [employer] Episode Statistic Recent [...] Statistic Recent Date Time End [employer] Episode Statistic Recent Date Time Start [employer] Episode Statistic Recent Date Time End [employer] Episode Statistic Recent Date Time Start [employer] Episode Statistic Recent Date Time End [employer] Episode Identifier APM-5 [employer] Episode Type Category Periodic EGM [employer] Episode Date Time [id number] [employer] Episode Identifier [id number] [employer] Episode Type Category Other [employer] Episode Date Time [id number] [employer] Episode Identifier [id number] [employer] Episode Type Category Other [employer] Episode Date Time [id number] [employer] Episode Identifier PMT-2 [employer] Episode Type Category Other [employer] Episode Date Time [id number] [employer] Episode Identifier PMT-1 [employer] Episode Type Category Other [employer] Episode Date Time [id number] [employer] Anatomical Region Laterality Modality Other 07/07/2023 4:01 AM CDT Narrative 07/11/2023 11:04 AM CDT Dating [employer] Accolade (D) Remote PPM Device Check AP: 13% RECORD SYSTEMS ANALYST: 82% Mode: DDD 60/130 Presenting Rhythm: /RECORD SYSTEMS ANALYST Historical underlying rhythm: SR 70's bpm with freq PACs and occ PVCs Heart Rate: Adequate rates per histogram Sensing: stable Pacing Threshold: stable Impedance: stable Battery Status: 14.5 years Atrial Arrhythmia: none Ventricular Arrhythmia: none Care Plan: F/u PPM Latitude q 3 months. NESTOR with results. SOPHIA MontejoT I have reviewed and interpreted the device interrogation, settings, programming and nurse's summary. The device is functioning within normal device parameters. I agree with the current findings, assessment and plan. Carlos Santana MD [facility] ORDERABLES * (ABNORMAL) Basic metabolic panel (01/19/2023 2:11 PM CDT) [facility] Sodium 138 135 - 145 mmol/L 01/19/2023 [...] MD LAB - BLOOD ORDERABL ES LABORATORY [facility] [address] floor, [address] [place] [address], [place] [phone] * (ABNORMAL) Hemoglobin A1c (11/30/2022 2:22 PM CDT) Hemoglobin A1C 9.4(H) <5.7 % 11/30/2022 7:11 PM CDT [facility] Comment: Normal <5.7% Prediabetes 5.7-6.4% ?? Diabetes 6.5% or higher Note: Adopted from ADA consensus guidelines. Blood STRUCTURE OF RIGHT HAND / Unknown Venipuncture / Unknown 11/30/2022 2:22 PM CDT 11/30/2022 2:26 PM CDT Dimitri Seth APRN SEEING EYE DOG TRAINER LAB - BLOOD O RDERABLES [facility] [address] Lab (1st floor, no room number) [place] [address], [facility] [phone] from Last 3 Months or Most Recently Relevant to Health Maintenance Advance Directives For more information, please contact: [phone] * Full Code (Latest Code Status on [...] tho nt/ legal decision maker Care Teams Input Output Clerk Relationship Specialty Start Date End Date [facility]- [address], [place] [address] PCP - General 12/02/22 Jennyfer Patel PA-C [address] [place] [address] Assigned Heart and Vascular Provider 12/24/22
== END 2023-10-03 13:11 | disposition home or self-care (01) ==
PROVIDERS: PCP Family Medicine; Visit Provider Family Medicine
DX: E11.9 Type 2 diabetes mellitus without complications (principal); D64.9 Anemia, unspecified; N28.9 Disorder of kidney and ureter, unspecified; E11.649 Type 2 diabetes mellitus with hypoglycemia without coma; N40.0 Benign prostatic hyperplasia without lower urinary tract symptoms; R53.83 Other fatigue; E55.9 Vitamin D deficiency, unspecified
CPT/HCPCS: 80048; 83036; G0103

== ENCOUNTER 2024-04-16 07:52 | Outpatient (CLI) | payer MEDICARE, SELFPAY | END 2024-04-16 07:53 | disposition home or self-care (01) | PROVIDERS: PCP Family Medicine; Visit Provider Family Medicine | DX: E11.649 Type 2 diabetes mellitus with hypoglycemia without coma (principal); E78.5 Hyperlipidemia, unspecified; I10 Essential (primary) hypertension; Z79.84 Long term (current) use of oral hypoglycemic drugs | CPT/HCPCS: 80053; 80061; 82043; 82570; 84153; 84154 ==

== ENCOUNTER 2024-10-07 12:40 | Outpatient (CLI) | payer MEDICARE, SELFPAY | END 2024-10-07 12:41 | disposition home or self-care (01) | PROVIDERS: PCP Family Medicine; Visit Provider Family Medicine | DX: I10 Essential (primary) hypertension (principal); E78.5 Hyperlipidemia, unspecified; Z12.5 Encounter for screening for malignant neoplasm of prostate | CPT/HCPCS: 80053; 80061; G0103 ==